=== PATIENT | female | born 1970 | race Hispanic/Latino ===

== ENCOUNTER 2018-09-14 05:41 | Observation (INO) | payer OTHER ==
[~2018-09-14] VITALS: Ht 170.2 cm; Wt 106.0 kg
[2018-09-14] MEDS ORDERED: NITROGLYCERIN 0.4 MG SL TAB SL ONE (05:52)
[2018-09-14] MEDS ORDERED: ASPIRIN 325 MG TABLET ONE (05:52)
[2018-09-14 06:13] LABS: BASOPHILS % (AUTO) 0.4 % (0.0-5.0); EOSINOPHILS % (AUTO) 1.3 % (0.0-8.0); HEMATOCRIT 36.4 % (36-48); LYMPHOCYTES % (AUTO) 23.2 % (21.0-51.0); MEAN CORPUSCULAR HEMOGLOBIN 31.3 pg (27.0-33.0); MEAN CORPUSCULAR HGB CONC 34.2 g/dL (32.0-36.0); MEAN CORPUSCULAR VOLUME 91.7 fL (79-99); MONOCYTES % (AUTO) 7.4 % (3.0-13.0); NEUTROPHILS % (AUTO) 67.7 % (40.0-77.0); PLATELET COUNT (AUTO) 235 K/uL (130-400); RED BLOOD CELL COUNT(AUTO) 3.97 MIL/uL (4.00-5.50); RED CELL DISTRIBUTION WIDTH 13.3 % (11.0-15.5); WHITE BLOOD COUNT (AUTO) 6.6 K/uL (4.8-10.8)
[2018-09-14 06:23] LABS: CREATININE 0.9 mg/dL (0.5-1.5); POTASSIUM 3.7 mmol/L (3.5-5.1)
[2018-09-14 06:24] LABS: INR 0.92 (0.85-1.15); PARTIAL THROMBOPLASTIN TIME 26.2 SEC (26.3-35.5); PROTHROMBIN TIME 9.7 SEC (9.6-11.6)
[2018-09-14] MEDS ORDERED: ACETAMINOPHEN EXTRA STRENGTH 500 MG TABLET ONE (06:34)
[2018-09-14] MEDS ORDERED: NITROGLYCERIN 1GM/1 INCH PACKET TD ONE (06:34)
[2018-09-14 06:35] LABS: ALBUMIN 3.2 g/dL (3.5-5.0); BILIRUBIN,TOTAL 0.3 mg/dL (0.2-1.0); TOTAL PROTEIN, SERUM 7.2 g/dL (6.0-8.3)
[2018-09-14] MEDS ORDERED: IOHEXOL 350 MG/ML 100ML INFUS..BTL IV ONE (08:51)
[2018-09-14] MEDS ORDERED: ACETAMINOPHEN 325 MG TAB ONE (10:41)
[2018-09-14] MEDS ORDERED: ACETAMINOPHEN 325 MG TAB PO PRN (10:45)
[2018-09-14] MEDS ORDERED: MORPHINE SULFATE 2 MG/ML 1ML SYG IV PRN (10:45)
[2018-09-14] MEDS ORDERED: ONDANSETRON HCL 4 MG/2 ML VIAL IV PRN (10:45)
[2018-09-14] MEDS: NITROGLYCERIN 1GM/1 INCH PACKET TD SCH ×2 (10:45→18:45)
[2018-09-14] MEDS ORDERED: HYDRALAZINE HCL 20 MG/ML VIAL IV PRN (10:45)
[2018-09-14 11:47] LABS: MAGNESIUM 1.8 mg/dL (1.80-2.40); THYROID STIMULATING HORMONE 0.96 uIU/mL (0.36-3.74)
[2018-09-14] MEDS ORDERED: ATOR20TA65 PO (14:22)
[2018-09-14] MEDS ORDERED: PANT40TA25 PO (14:22)
[2018-09-14] MEDS ORDERED: NITR0.4T SL (14:22)
[2018-09-14] MEDS ORDERED: RANO500T2 PO (14:22)
[2018-09-14] MEDS ORDERED: ISOS10TA8 PO (14:22)
[2018-09-14] MEDS ORDERED: ENOXAPARIN SODIUM 40 MG/0.4 ML SYRINGE SQ ONE (15:19)
[2018-09-14] MEDS ORDERED: MORPHINE SULFATE 2 MG/ML 1ML SYG ONE (15:19)
[2018-09-14] MEDS ORDERED: ONDANSETRON HCL 4 MG/2 ML VIAL ONE (15:23)
--- NOTE | 2018-09-14 18:40 | NUR ---
Received bedside report from nurse Long.Pt. is here due to chestpain.Pt. is lying in bed ,awake and oriented,denies chestpain at this time.She said she feels much better now.
[2018-09-14 18:48] VITALS: BP 133/82
[2018-09-14 19:27] LABS: CREATINE KINASE, TOTAL 44 U/L (21-232); MYOGLOBIN 23 ng/mL (10-92); TROPONIN I < 0.04 ng/mL (0.00-0.06)
[2018-09-14] MEDS ORDERED: ATORVASTATIN CALCIUM 20 MG TABLET PO SCH (21:00)
[2018-09-14] MEDS: METOPROLOL TARTRATE 25 MG TAB PO SCH (21:40)
[2018-09-14] MEDS: FAMOTIDINE 20MG TAB 20 MG TAB PO SCH (21:40)
[2018-09-14 23:44] VITALS: BP 110/74
[2018-09-15] MEDS: NITROGLYCERIN 1GM/1 INCH PACKET TD SCH ×2 (02:09→09:23)
[2018-09-15 03:27] LABS: CREATINE KINASE, TOTAL 37 U/L (21-232); MYOGLOBIN 18 ng/mL (10-92); TROPONIN I < 0.04 ng/mL (0.00-0.06)
[2018-09-15 03:45] VITALS: BP 160/71
[2018-09-15 07:00] VITALS: BP 92/54
[2018-09-15] MEDS ORDERED: ENOXAPARIN SODIUM 40 MG/0.4 ML SYRINGE SQ SCH (09:00)
[2018-09-15] MEDS ORDERED: ASPIRIN 325 MG TABLET PO SCH (09:00)
[2018-09-15] MEDS: METOPROLOL TARTRATE 25 MG TAB PO SCH (09:00)
[2018-09-15] MEDS: FAMOTIDINE 20MG TAB 20 MG TAB PO SCH (09:22)
[2018-09-15] MEDS ORDERED: ATOR20TA65 PO (09:23)
[2018-09-15] MEDS ORDERED: ISOS10TA8 PO (09:23)
[2018-09-15] MEDS ORDERED: NITR0.4T SL (09:23)
[2018-09-15] MEDS ORDERED: PANT40TA25 PO (09:23)
[2018-09-15] MEDS ORDERED: RANO500T2 PO (09:23)
--- NOTE | 2018-09-15 12:49 | NUR ---
DISCHARGE INSTRUCTIONS GIVEN. ALL QUESTIONS ANSWERED. IV DISCONTINUED WITH INNER CANNULA INTACT. INSTRUCTED PATIENT TO FOLLOW UP WITH PCP AND CARDILOGIST
== END 2018-09-15 13:00 | disposition home or self-care (01) ==
LOC: EDH 05:41 → EDHIP 10:41 → 3DH 18:56
PROVIDERS: ADMIT Internal Medicine; ATTEND Internal Medicine
DX: R07.89 Other chest pain (principal); Z88.0 Allergy status to penicillin; Z88.1 Allergy status to other antibiotic agents; Z91.14 Patient's other noncompliance with medication regimen; Z79.899 Other long term (current) drug therapy; Z82.5 Family history of asthma and other chronic lower respiratory diseases; Z83.3 Family history of diabetes mellitus; Z82.49 Family history of ischemic heart disease and other diseases of the circulatory system
CPT/HCPCS: 36415 ×2; 71045; 71275; 80053; 82550 ×4; 83735; 83874 ×4; 84443; 84484 ×4; 85025; 85378; 85610; 85730; 93005 ×5; 99284; G0378 ×26; J1650; J2405; Q9967